=== PATIENT | female | born 1980 | race Caucasian/White ===

== ENCOUNTER → 2016-12-21 | Outpatient (CLI) | payer MEDICAID ==
[~2016-12-21] MED LIST: ALBUTEROL-200 PUFFS/ IH; BUSPAR 10MG TAB10 MG PO; FIORICET 325 MG1 TAB PO; FLEXERIL10 M1 PO; FLONASE 50 MCG16 GM; GOOD NEIGHBOR P20 M1 PO; IBUPROFEN200 MG PO; KEFLEX 500MG.500 MG PO; LEVOTHYROXIN0.112 M1 PO; LEVOTHYROXIN0.125 MG PO; LEVOTHYROXINE0.1 M1 PO; LORATADINE 10MG10 M1 PO; LORTAB 5/500 501 TAB PO; MEDROL 4MG. DOSE4 MG PO; MELOXICAM15 MG PO; MIRENA52 MG IU; MOBIC15 MG PO; MULTI VITAMINS1 TA1 PO; NORCO 325 MG-51 TAB PO; ORTHO TRI-CYCLE1 TAB PO; PREDNISONE 20MG20 MG PO; PROZAC 20MG CAP20 MG PO; SINGULAIR10 MG PO; SUMATRIPTAN SU100 MG PO; TORADOL10 M2 PO; VICODIN 5/500 T1 TAB PO; VOLTAREN75 MG PO; ZITHROMAX Z PA250 MG PO; ZYRTEC ALLERGY10 MG PO
[2016-12-21 14:07] LABS: HEMOGLOBIN 13.3 g/dL (12.2-16.2); LYMPH # 1.7 K/mm3 (0.7-4.5); LYMPH % 17.1 % (10-50.0)
[2016-12-21 14:55] LABS: AMPHETAMINES/METAMPHETAMINES NEGATIVE ng/mL (<1000)
[2016-12-21 16:00] LABS: BUN 24 mg/dL (7-18)
[2016-12-21 16:02] LABS: GFR (ESTIMATED) 57 ML/MIN (59-)
== END ==
LOC: LAB 13:48
PROVIDERS: Nurse Practitioner Psychiatric/Mental Health
DX: F39 Unspecified mood [affective] disorder (principal)

== ENCOUNTER → 2017-01-12 | Outpatient (CLI) | payer MEDICAID ==
--- NOTE | 2017-01-12 14:08 | RADIOLOGY REPORT PS360 ---
KNEE-3 VIEWS-RT HISTORY: RT MEDIAL PAIN ORDERING PHYSICIAN: CHRIS ADEN APRN PATIENT AGE: 36 years FINDINGS: There are minor osteoarthritic changes with minimal osteophyte formation along the lateral compartment and superior patella. The joint spaces are fairly well-preserved. No fracture or dislocation is evident. No lytic or blastic change. No significant change from 11/24/2014. IMPRESSION: Minor osteoarthritic change otherwise negative
== END ==
LOC: RAD 13:04
DX: M25.561 Pain in right knee (principal)

== ENCOUNTER → 2017-01-25 | Outpatient (CLI) | payer MEDICAID ==
[2017-01-26 15:27] LABS: AMPHETAMINES/METAMPHETAMINES NEGATIVE ng/mL (<1000)
== END ==
LOC: LAB 17:00
PROVIDERS: Nurse Practitioner Family
DX: E66.01 Morbid (severe) obesity due to excess calories (principal)

== ENCOUNTER → 2017-02-10 | Outpatient (CLI) | payer MEDICAID ==
--- NOTE | 2017-02-10 15:58 | RADIOLOGY REPORT PS360 ---
CT CHEST W/O CONTRAST HISTORY: Follow-up pulmonary nodules PULMONARY NODULE ORDERING PHYSICIAN: Nile Stallworth MD PATIENT AGE: 908/04/2015 TECHNIQUE: Helical acquisition obtainedwithout contrast. Axial, sagittal, and coronal reformatted images are generated and reviewed. COMPARISON: 08/04/2016 FINDINGS: There are scattered small lymph nodes in the mediastinum the largest measuring 1.8 x 1.6 cm not significantly changed. No evidence of aortic aneurysm, cardiomegaly, or pericardial effusion. 12 x 12 mm nodule is present in the right middle lobe not significantly changed. There are some small nodes in the right hilum which appear stable. There are no change 7 mm nodule right lower lobe medially. No change in the 4 and 3 mm nodules left lower lobe. No new nodules evident. No effusions or infiltrates. Upper abdominal images are unremarkable. IMPRESSION: Stable CT appearance of the chest. No change in the bilateral pulmonary nodules and small mediastinal and right hilar lymph nodes as described above. These have been stable for a 1 year.. Suggest continued yearly follow-up.
== END ==
LOC: RAD 13:00
DX: R91.8 Other nonspecific abnormal finding of lung field (principal)

== ENCOUNTER → 2017-07-13 | Outpatient (CLI) | payer MEDICAID ==
[~2017-07-13] MED LIST changes: +AMOXICILLIN 50500 MG PO
[2017-07-13 14:39] LABS: HEMOGLOBIN 12.9 g/dL (12.2-16.2); LYMPH # 1.6 K/mm3 (0.7-4.5); LYMPH % 25.7 % (10-50.0)
[2017-07-13 14:40] LABS: URINE BILIRUBIN - DIPSTICK NEGATIVE (NEG); URINE BLOOD TRACE-INTACT (NEG)
--- NOTE | 2017-07-13 14:55 | RADIOLOGY REPORT PS360 ---
CHEST(2 VIEWS-NOT PORTABLE) HISTORY: ASTHMA ORDERING PHYSICIAN: GUSTAVO SCOTT MD PATIENT AGE: 37 years COMPARISON: 09/01/2016 FINDINGS: The cardiomediastinal silhouette and pulmonary vascularity are within normal limits. No lobar consolidation or collapse is evident. There is a 15 mm nodule overlying the heart on the lateral view and is likely corresponding to the abnormality noted on the recent chest CT 02/10/2017 which was also present on previous chest CT of 08/04/2016.. No new nodules apparent. No acute bony abnormalities. IMPRESSION: 1. No acute finding. 2. No change right middle lobe nodule. As mentioned in the chest CT report recommend continued follow-up with CT to confirm long-term stability
[2017-07-13 17:25] LABS: BUN 13 mg/dL (7-18)
[2017-07-13 17:58] LABS: GFR (ESTIMATED) 95 ML/MIN (59-)
== END ==
LOC: LAB 13:51
PROVIDERS: Orthopaedic Surgery
DX: Z01.818 Encounter for other preprocedural examination (principal); S83.241A Other tear of medial meniscus, current injury, right knee, initial encounter

== ENCOUNTER 2017-07-23 19:52 | Emergency (ER) | payer MEDICAID ==
[~2017-07-23] VITALS: Ht 175.3 cm; Wt 145.2 kg
[~2017-07-23 19:52] MED LIST changes: -AMOXICILLIN 50500 MG PO
[2017-07-23] MEDS ORDERED: AMOXICILLIN 50500 MG PO (20:56)
--- NOTE | 2017-07-23 20:57 | Urgent Treatment Center Report ---
History of Present Issue Date/Time Seen by Provider 07/23/172049 Visit Reason Pt arrived:Walked Presenting Problem:PT STATES SHE'S HAD AN EAR ACHE FOR 3 DAYS Location if Accident: Onset of symptoms date/time:07/20/17 or onset unknown for: Have you (or family members/close friends) recently traveled outside the [place]? N If Yes, where/when: Have you had exposure to infectious disease within the past month? TB? Other? Specify: Patient state that she has had an ear ache for several days state that she is also having sinus pain and pressure and blowing out yellowish green mucous. State that she has continued to feel worse over the last few days and decided to come in and get checked ALLERGIES Coded Allergies: No Known Allergies (08/27/16) Home Medications Active Scripts Azithromycin (Zithromycin (Z-TANYA) 250MG Tab) 250 MG PO DAILY #6 TAB Prov: 02/19/17 Methylprednisolone (Medrol Dose Tanya) 4 MG PO UD #1 TANYA Prov: 02/19/17 Fluticasone Propionate (Flonase 50 Mcg Nasal [place]) 2 SPRAY NA DAILY #1 BOT Prov: 02/19/17 Fluticasone Propionate (Flonase 50 Mcg Nasal [place]) 2 SPRAY NA DAILY #1 BOT Prov: 05/01/17 Reported Medications Albuterol (Albuterol-Hfa Inhaler) 2 PUFF IH Q4HP PRN SOA Montelukast Sodium (Singulair) 10 MG PO DAILY Fluticasone Propionate (Flonase 50 Mcg Nasal [place]) 1 SPRAY NA DAILY Omeprazole 20 MG PO DAILY Cetirizine Hcl (Zyrtec) 10 MG PO DAILY Meloxicam (Mobic 15MG) 15 MG PO DAILY Levothyroxine Sodium (Levothyroxine 0.125MG) 0.125 MG PO DAILY History Medical History General CAD? No Angina: No [place]: No Hypertension? Yes Hyperlipidemia? No CHF? No DVT? No PE? No COPD? No Asthma? Yes Anemia? No GERD? Yes Gastric ulcers? No GI Bleed? No Hernia? No Thyroid Problems? No Hypothyroidism? Yes CVA? No Seizures? No Diabetes? No Renal Insuffiency? No UTI? No Stones? No GB Disease: No Nephritic Syndrome? No Asplenia? No Hepatitis? No Sickle Cell Disease? No Arthritis? No Migraines? No Cataracts? No Glaucoma? No MRSA? No HIV? No TB? No Anxiety? No Depression? No Cancer? No More? No Immunization HX DT/Tetanus 11/24/2010 Pneumonia Refuses Surgical Hx Previous Surgery?Y D AND C CERVIX- LEEP X 1 EAR TUBES PARTIAL THYROIDECTOMY Social History Smoking Hx Smoker: Never Smoker Tobacco: No Alcohol Alcohol: No Review of Systems All Other Systems Reviewed and Negative ENT ear pain, nose pain, nose discharge, nose congestion. Physical Exam Vital Signs Vital Signs Date Time Temp Pulse Resp B/P Pulse O2 O2 Flow FiO2 Ox Delivery Rate 07/23 2043 98.2 66 20 149/95 100 General Appearance normal appearance, WD/WN, no apparent distress Ear, Nose, Throat sinus pain/drainage, nasal congestion, right ear tube in place redness noted, left ear no redness tube in place, Tenderness noted over maxillary sinuses yellowish green drainage noted Respiratory Status Yes: trachea midline, chest symmetrical, non tender chest. No: respiratory distress. Cardiovascular normal exam, regular rate/rhythm, no peripheral edema, no gallop Neurologic alert, locomotive operator II-XII nml as tested, normal exam, no motor/sensory deficits, oriented x 3 Medical Decision Making LABS/Meds/Orders Pt receiving controlled substance in ED? No Departure Departure Time of Disposition 2051 Disposition DC Home or Self Care(routine) Clinical Impression Primary Impression: Sinusitis Qualifiers: Sinusitis location: unspecified location Chronicity: unspecified Qualified Code: J32.9 - Chronic sinusitis, unspecified Secondary Impressions: Otitis media due to H1N1 influenza virus Condition STABLE Referrals Anamaria Rojas APRN (Family) Patient Instructions DI for Otitis Media (Middle Ear Infection)-Child, DI for Sinusitis, Sinusitis Additional Instructions Start antibiotic. It may take 2-3 days to notice much improvement so be sure to use conservative measures as discussed for symptoms Ok to continue Sudafed Flonase 2 spray in each nostril daily to help with nasal congestion, sinus an ear pressure/inflammation Lots of Fluids Sleep elevated Humidifer/vaporizer Discharge Counseling Counseled pt/family regarding diagnosis, medications/RX, home care, follow up needs Prescriptions Current Visit Scripts Amoxicillin Trihydrate (Amoxicillin 500MG) 500 MG PO TID #30 CAP at 2059
[2017-07-23 21:16] VITALS: BP 149/95
== END 2017-07-23 21:16 | disposition home or self-care (01) ==
LOC: UTC 19:52
DX: J32.9 Chronic sinusitis, unspecified (principal); J10.83 Influenza due to other identified influenza virus with otitis media; Z79.899 Other long term (current) drug therapy; I10 Essential (primary) hypertension; K21.9 Gastro-esophageal reflux disease without esophagitis

== ENCOUNTER 2017-08-15 15:15 | Emergency (ER) | payer MEDICAID ==
[~2017-08-15] VITALS: Ht 175.3 cm; Wt 145.2 kg
[~2017-08-15 15:15] MED LIST changes: +AMOXICILLIN 50500 MG PO; -LEVOTHYROXIN0.125 MG PO; +LEVOTHYROXINE0.15 MG PO
--- NOTE | 2017-08-15 15:36 | Urgent Treatment Center Report ---
History of Present Issue Date/Time Seen by Provider 08/15/17 8114 Visit Reason Pt arrived:Walked Presenting Problem:PT C/O RIGHT LEG SWOLLEN Location if Accident: Onset of symptoms date/time:/ or onset unknown for:MEDICAL HX UNKNOWN Have you (or family members/close friends) recently traveled outside the [place]? N If Yes, where/when: Have you had exposure to infectious disease within the past month? TB? Other? Specify: Source patient, RN notes reviewed Exam Limitations no limitations Comment Swelling of right leg X several days. No pain or redness. Has had swelling before. Works on her feet a lot. Tried to elevate it last night but it didn't help much. No history of DVT. Scheduled for knee surgery in 8 days. ALLERGIES Coded Allergies: No Known Allergies (08/27/16) Home Medications Active Scripts Azithromycin (Zithromycin (Z-ABDULLAHI) 250MG Tab) 250 MG PO DAILY #6 TAB Prov: 02/19/17 Methylprednisolone (Medrol Dose [place]) 4 MG PO UD #1 ABDULLAHI Prov: 02/19/17 Fluticasone Propionate (Flonase 50 Mcg Nasal [place]) 2 SPRAY NA DAILY #1 BOT Prov: 02/19/17 Amoxicillin Trihydrate (Amoxicillin 500MG) 500 MG PO TID #30 CAP Prov: 07/23/17 Fluticasone Propionate (Flonase 50 Mcg Nasal [place]) 2 SPRAY NA DAILY #1 BOT Prov: 05/01/17 Reported Medications Albuterol (Albuterol-Hfa Inhaler) 2 PUFF IH Q4HP PRN SOA Montelukast Sodium (Singulair) 10 MG PO DAILY Fluticasone Propionate (Flonase 50 Mcg Nasal [place]) 1 SPRAY NA DAILY Omeprazole 20 MG PO DAILY Cetirizine Hcl (Zyrtec) 10 MG PO DAILY Meloxicam (Mobic 15MG) 15 MG PO DAILY Levothyroxine Sodium (Levothyroxine 0.125MG) 0.125 MG PO DAILY History Medical History General CAD? No Angina: No [place]: No Hypertension? Yes Hyperlipidemia? No CHF? No DVT? No PE? No COPD? No Asthma? Yes Anemia? No GERD? Yes Gastric ulcers? No GI Bleed? No Hernia? No Thyroid Problems? No Hypothyroidism? Yes CVA? No Seizures? No Diabetes? No Renal Insuffiency? No UTI? No Stones? No GB Disease: No Nephritic Syndrome? No Asplenia? No Hepatitis? No Sickle Cell Disease? No Arthritis? No Migraines? No Cataracts? No Glaucoma? No MRSA? No HIV? No TB? No Anxiety? No Depression? No Cancer? No More? No Immunization HX DT/Tetanus 11/24/2010 Pneumonia Refuses Surgical Hx Previous Surgery?Y D AND C CERVIX- LEEP X 1 EAR TUBES PARTIAL THYROIDECTOMY Social History Smoking Hx Smoker: Never Smoker Tobacco: No Alcohol Alcohol: No Review of Systems All Other Systems Reviewed and Negative Musculoskeletal see HPI Physical Exam Vital Signs Vital Signs Date Time Temp Pulse Resp B/P Pulse O2 O2 Flow FiO2 Ox Delivery Rate 08/15 1528 98.4 88 20 143/100 96 General Appearance normal appearance, no apparent distress Respiratory Status No: respiratory distress, trachea midline, chest symmetrical. Lung Sounds bilateral: normal breath sounds, lungs clear. Cardiovascular normal exam, regular rate/rhythm, no peripheral edema, no gallop, no JVD, no murmur, no rub Peripheral Pulses Pulses normal Yes Extremities non-tender, normal range of motion, normal inspection, normal capillary refill, pedal edema, Negative Essie's; no calf tenderness Neurologic alert, normal exam, oriented x 3 Mental status normal mood/affect Medical Decision Making LABS/Meds/Orders Pt receiving controlled substance in ED? No Departure Departure Time of Disposition 1542 Disposition DC Home or Self Care(routine) Clinical Impression Primary Impression: Edema, lower extremity Condition STABLE Referrals Anamaria Rojas APRN (Family) Patient Instructions DI for Peripheral Edema, Unilateral Additional Instructions ARGELIA WADE Discharge Counseling Counseled pt/family regarding diagnosis, medications/RX, home care, follow up needs Prescriptions Current Visit Scripts Furosemide (Lasix 20MG) 20 MG PO DAILY #7 TAB at 1547
[2017-08-15] MEDS ORDERED: LASIX 20MG. TAB20 MG PO (15:43)
[2017-08-15 15:48] VITALS: BP 143/100
== END 2017-08-15 15:51 | disposition home or self-care (01) ==
LOC: UTC 15:15
DX: R60.9 Edema, unspecified (principal); I10 Essential (primary) hypertension; J45.909 Unspecified asthma, uncomplicated; K21.9 Gastro-esophageal reflux disease without esophagitis; E03.9 Hypothyroidism, unspecified; Z79.51 Long term (current) use of inhaled steroids; Z79.899 Other long term (current) drug therapy

== ENCOUNTER 2017-08-23 08:17 | Observation (INO) | payer MEDICAID ==
[~2017-08-23] VITALS: Ht 175.3 cm; Wt 143.1 kg
[2017-08-23] VITALS (11 sets, daily range): BP systolic 115–144; BP diastolic 58–80
[~2017-08-23 08:17] MED LIST changes: +LASIX 20MG. TAB20 MG PO
--- NOTE | 2017-08-23 14:32 | Anesthesia Record ---
Anesthesia Record Part I Total IV fluids: 2500 EBL (ml): 10 Urine Output: 600 B/P: 130/95 % SaO2: 93 Pulse: 99 Resps: 12 Temp: 98.4 Patient is: Awake, Stable Stable to PACU at: 1430 at 1431
--- NOTE | 2017-08-23 14:32 | Anesthesia Record ---
Anesthesia Record Part II Discharge time: 1500 Destination: Same day surgery PACU nurse assessment review? Yes Patient is: Awake, Stable Anesthesia complications? No at 1432
--- NOTE | 2017-08-23 16:21 | Operative Note ---
Procedure/Operative Record Date of Procedure: 08/23/17 Referring physician: Dr. Guzman Pre-op diagnosis: 1. Anterior cruciate ligament tear, RIGHT knee 2. Complex medial meniscal tear, RIGHT knee 3.Osteoarthritis, RIGHT knee 4. Morbid obesity Post-op diagnosis: 1. Anterior cruciate ligament tear, RIGHT knee 2. Complex medial meniscal tear, RIGHT knee 3.Osteoarthritis, RIGHT knee 4. Morbid obesity Procedure performed: 1. Examination under anesthesia, RIGHT knee 2. Anterior cruciate ligament reconstruction, RIGHT knee 3. Partial medial meniscectomy, RIGHT knee 4. Chondroplasty, RIGHT knee Surgeon: Juanjo Scott MD Welder Apprentice Combination(s): Dr. Neo Francis Anesthesia: General Indications: Patient is a 37 year-old female who sustained an injury to her RIGHT knee while getting up from a seated position in a chair over 6 months ago. Evaluation including MRI scan showed a complete anterior cruciate ligament tear, complex medial meniscal tear and degenerative changes. She had a spell of physical therapy but the knee continued to be unstable with frequent episodes of giving out. Clinically her knee joint was unstable. Following a detailed discussion about the management options in the office, she opted for anterior cruciate ligament reconstruction with an allograft and a partial medial meniscectomy/ meniscal repair as appropriate at the time of the procedure. I told her that there were no guarantees with surgery; she could be no better or even worse. The complications discussed include but are not limited to infection, injury to nerves, blood vessels and tendons/ligaments, bleeding, DVT/PE , continued instability, loss of stability/graft failure, anterior knee pain/kneeling pain, stiffness, arthrofibrosis, knee effusion both aseptic and septic, fracture through tunnels, persistent pain, recurrent joint swelling, graft discontinuity, inappropriate tunnel positioning, injury to the articular cartilage, menisci and posterior cruciate ligament, graft impingement, tunnel blowout, painful hardware , arthritis, Cyclops lesion, Complex Regional Pain Syndrome (CRPS), hemarthrosis , continued symptoms/incomplete recovery, likely need for further surgery, reaction to anesthetic with damage to the heart, lungs, brain, and even . With regards to the graft options- she again elected for an allograft and I am planning to use soft tissue graft with the suspensory fixation for an all inside anterior cruciate ligament reconstruction. We discussed possible risk of disease transmission even though very rare, slightly higher risk of graft failure/ rupture. We had to reschedule her couple of times previously because of issues with obtaining the allograft. Therefore we also discussed about autograft options including bone patellar tendon bone graft and the required surgery and complications for this. This however is not her primary option. Her primary option still is an allograft. We also discussed the postoperative recovery and rehabilitation protocol. She understands postoperative physical therapy is one of the mainstays of the management and involves various stages for at least 6 months. I told her that it could take up to 6-9 months for full recovery of her knee and to return to any sports again. All her questions were answered by me and the patient expressed full understanding and wished to proceed with surgery. Findings: Examination under anesthesia showed a small knee joint effusion. Her knee range of motion was from 0-110 of flexion. Knee joint was stable to varus and valgus stress at 0 and 30 degrees of flexion. Anterior drawer 2+, Renato was difficult to evaluate given the size of her leg and she had a positive pivot shift test, grade 2. Arthroscopic findings included near complete anterior cruciate ligament rupture at the femoral attachment with only a few fibers of the anteromedial bundle intact. The medial meniscus showed a complex tear with the major component of the tear appearing like a detached bucket-handle tear involving the body and posterior horn. The torn meniscus was very chewed up and not suitable for meniscal repair. There were degenerative changes in all 3 compartments with more severe changes over the patellofemoral joint. Description of procedure: The patient was brought to the operating room and placed supine on the operating table. All the bony prominences were appropriately padded. A general anesthesia was administered by the anesthetic team. Examination under anesthesia showed a small knee joint effusion. Her knee range of motion was from 0-110 of flexion. Knee joint was stable to varus and valgus stress at 0 and 30 degrees of flexion. Anterior drawer 2+, Renato was difficult to evaluate given the size of her leg and she had a positive pivot shift test, grade 2. A well-padded tourniquet cuff was placed over the RIGHT upper thigh. The RIGHT lower extremity was prepped and draped in the usual sterile fashion. The leg was draped free to facilitate full flexion and extension of the knee with a lateral post attached to the table. Administration of IV prophylactic antibiotics was confirmed with anesthetic team. A preprocedure timeout was performed as per hospital protocol. The limb was exsanguinated with Esmarch bandage and tourniquet cuff was inflated to 350 mmHg. Please see the nursing notes for the tourniquet time. A standard anterolateral portal was established blindly and the arthroscopic sheath and arthroscope were introduced. After filling the knee joint with the irrigation fluid, an anteromedial portal was established under direct vision using a spinal needle. A diagnostic knee arthroscopy was performed. This showed a lax ACL with near complete tear at the femoral attachment with only a few fibers of the anteromedial bundle intact. On probing the anterior cruciate ligament, it was noted that there is some scarring and more than 90 percent rupture of the anterior cruciate ligament at the femoral attachment with only a few anteromedial fibers intact. The intercondylar notch was noted to be somewhat narrow. The medial meniscus showed a complex tear with the major component of the tear appearing like a detached bucket-handle tear involving the body and posterior horn. The torn meniscus was very chewed up and not suitable for meniscal repair. Given this fact we have decided against performing lateral meniscectomy. There were degenerative changes in all 3 compartments with more severe changes over the patellofemoral joint. The posterior cruciate ligament was intact. The lateral meniscus was intact. After completing this diagnostic arthroscopy, we have decided to proceed with partial medial meniscectomy and anterior cruciate ligament reconstruction with the graft link cadaveric allograft. We first performed a partial medial meniscectomy using arthroscopic biters and shaver. The chewed up, unstable segments were removed leaving a stable meniscal rim behind. Satisfactory partial meniscectomy was confirmed by probing the left over meniscus. We then turned our attention to the intercondylar notch where the remnant of torn anterior cruciate ligament was debrided using the 4 mm aggressive plus arthroscopic shaver. A limited notchplasty was performed using arthroscopic curette and nicolas. At this time, the pre-sutured [employer] GaftLink soft tissue allograft was prepped on the back table ready for use. The graft was measured, sized and marked appropriately. The femoral end measured 9.5 mm in thickness and the tibial end measured 9 mm thick. We then used the femoral guide to create the femoral tunnel for the all inside anterior cruciate ligament reconstruction using the appropriate size flip cutter. After positioning the femoral guide appropriately a small skin incision was made over the lateral aspect of the knee and the flip cutter was introduced. Then the guide was removed and the flip cutter blade was opened and the femoral tunnel created to 30 mm depth. Using the fiber stick a loop of FiberWire was passed and retrieved through the lateral portal for passing the femoral end of the graft. Attention was then turned to the creation of the tibial tunnel again using the appropriate sized flip cutter for the all inside anterior cruciate ligament reconstruction. Using the appropriate tibial guide through the medial portal, the tip of the guide was positioned over the anterior cruciate ligament footprint. The skin incision was made over the anteromedial aspect of the proximal tibia, and the flip cutter was introduced. After the making sure the position is satisfactory, the guide was removed and the flip cutter blade was activated. The tibial tunnel was created with the flip cutter to 35 mm depth. Again using the fiber stick a loop of FiberWire was passed and retrieved through the medial portal for passing the tibial end of the graft. We then introduced a passport cannula through the medial portal for passing the graft into the knee joint. Then using the femoral and tibial fiber loops, the graft was first passed into the femoral tunnel and then into the tibial tunnel. After positioning the graft appropriately in the femoral and tibial tunnels, we then deployed the femoral tightrope button. We then placed the tibial tightrope ABS button and advanced on to the tibial cortex. At this stage, we felt that the femoral button was hanging on the soft tissue as opposed to sitting flush on the bone. We confirmed this under C-arm fluoroscopic guidance and noted that it was not sitting flush on the bone. Therefore, we extended the skin incision over the lateral femoral condyle and dissected bluntly down to the fascia hector. We noted that the button was hanging on the fascia hector which we carefully incised and then advance the button onto the bone. After tightening the tightrope button appropriately, the knee joint was cycled through repeatedly. Then both tightrope buttons were fully tightened at 15-20 degrees of knee flexion and mild posterior pressure on the tibia. Appropriate positioning of the tightrope buttons was confirmed under C-arm and the femoral pull-through suture was removed. The femoral tightrope suture was cut under the skin. On the tibial side the tightrope suture was cut and the whipstitch suture was tied over the button. The graft was again examined arthroscopically. It was probed and felt to be stable. The Lachmans test was felt to be obliterated and the anterolateral stability was restored on pivot shift test. There was no evidence of graft impingement through range of motion. The knee was copiously irrigated and completely emptied. The portals/skin incisions were closed with 4-0 Ethilon sutures. Hemostasis was obtained with diathermy and the incision over the lateral femoral condyle was closed with 2-0 Vicryl and 4-0 Ethilon sutures to the skin. A total of 60 cc of 0.5% Marcaine was injected around the portals/incision and into the knee joint for postoperative pain relief. Sterile dressings and pressure bandages were applied. Tourniquet cuff was removed at the completion of the procedure. Patient was then reversed from the anesthetic and transferred onto a gurney. She was then safely transported to the postoperative recovery area in stable condition. A T scope brace was applied in the recovery area and locked in full extension. Patient tolerated the procedure well and there were no immediate complications. The swab, needle and instrument counts were correct according to the scrub team at the end of the procedure. Patient had significant postoperative pain which could not be controlled on an outpatient basis. Therefore she was admitted for observation and pain control. Follow up in my office in 2-3 days' time for reducing the dressings and start of physical therapy. EBL (ml): 20 Implant: 9 mm/74 mm GraftLink pre-sutured soft tissue allograft ([employer]) [employer] allograft GraftLink convenience pack with femoral and tibial tightrope/ buttons (Industry representatives: Neil Hernadez from [employer]) Complications: None Specimens: None at 1213
[2017-08-23 17:12] LABS: URINE BILIRUBIN - DIPSTICK NEGATIVE (NEG); URINE BLOOD NEGATIVE (NEG)
[2017-08-23 18:06] LABS: URINE SQUAMOUS CELLS OCC #/hpf (0-5)
[2017-08-24] VITALS (7 sets, daily range): BP systolic 104–128; BP diastolic 49–77
--- NOTE | 2017-08-24 05:07 | RADIOLOGY REPORT PS360 ---
KNEE-LIMITED 2 VIEWS-RT HISTORY: ACL REPAIR OF RT KNEE ORDERING PHYSICIAN: GUSTAVO SCOTT MD PATIENT AGE: 37 years COMPARISON: None FINDINGS: 2 images are submitted with C-arm during the ACL repair. IMPRESSION: Fluoroscopy utilized for ACL repair
--- NOTE | 2017-08-24 07:26 | PHARMACY CLINIC NOTE ---
Patient Demographics Patient Demographics Admission date: 08/23/17 Date: 08/24/17 Time: 07 Allergies Coded Allergies: No Known Allergies (08/23/17) HEIGHT- FT: 5 IN: 9.00 K.082 VTE General Information Disclaimer The following section includes nursing documentation that has been pulled in for pharmacy review. Patient's VTE score: 5 Patient's VTE Risk: LOW RISK VTE prophylaxis NQF [id number] VTE prophylaxis ordered? Yes Type of prophylaxis/treatment: ICD at 0725
--- NOTE | 2017-08-24 11:44 | ACUTE CARE PROGRESS NOTE ---
Progress note Date: 08/24/17 Assessment: Subjective: Patient is a 37-year-old female status post arthroscopic ACL reconstruction, partial medial meniscectomy and chondroplasty, post op day # 1. She was admitted to hospital yesterday after surgery mainly for pain management. She is lying down on the bed and appears comfortable. She says he is doing well and says her pain is well controlled with medication. She also mentioned that she got out of bed earlier today and walked with the splint without much discomfort. She is eating and drinking well. No history of any fevers, nausea, vomiting, tingling or numbness in the leg. She is keen to go home today. Objective: I reviewed the labs, vital signs, medication, and discussed with the nursing staff. Exam: General appearance: alert, oriented 3 awake, no acute distress. ENT: mucous membranes dry Neck: normal inspection Cardiovascular: normal sinus rhythm, regular rate & rhythm Respiratory: clear to auscultation, normal breath sounds ABD: non-distended, normal bowel sounds, soft, no tenderness, no guarding and no organomegaly Skin: dry, intact On examination of her right lower extremity, she has a well fitting t scope knee brace in place. The dressings over the right knee are clean, dry and intact. Her thigh and calf are soft and nontender. Distal dorsalis pedis and posterior tibial pulses are 2+. Capillary refill is brisk. Distal sensation is intact to light touch throughout. She is actively moving her ankle, foot and toes on both sides. Vital Signs Result Date Time Pulse Ox 98 08/24 1119 B/P 115/56 08/24 1119 O2 Delivery ROOM AIR 08/24 1119 Temp 98.2 08/24 1119 Pulse 69 08/24 1119 Resp 20 08/24 1119 Impression: 1. S/P ACL reconstruction 2. S/P arthroscopic partial medial meniscectomy Plan: I reviewed her vital signs, lab results, medication and also discussed with the nursing staff regarding her progress. I reviewed the operative findings and the procedure performed with the patient and her . As her pain is well controlled and she is doing well, we will discharge her from hospital today. She can mobilize weightbearing as tolerated with the splint. Advised her to continue elevation, icing, pain medication as needed and active foot and ankle movements. Follow-up in my office in 2 days time for change of dressings followed by physical therapy appointment. All their questions were answered by me and they verbalized a good understanding. Antibiotic Stewardship (2) Current Culture Results Microbiology 08/23 0946 URINE,FO: Urine Culture - RES
[2017-08-24] MEDS ORDERED: SENNA PLUS 50 M1 TAB PO (11:49)
--- NOTE | 2017-08-27 15:15 | DISCHARGE SUMMARY STANDARD ---
Demographics Admit date: 08/23/17 Discharge date: 08/24/17 History of present illness History of present illness Patient is a 37-year-old female who sustained an injury to her right knee about 6 months ago. Evaluation including an MRI scan of her knee showed a complex medial meniscal tear, complete ACL rupture as well as degenerative changes. She failed to respond satisfactorily to conservative management and continued to have knee pain and recurrent giving out. Following evaluation in the office, she was brought in for elective right knee arthroscopic surgery. She underwent an uneventful right knee arthroscopic ACL reconstruction with cadaveric soft tissue allograft, partial medial meniscectomy and chondroplasty on 08/24/2017. She was admitted following surgery for observation and pain management. She works in the [employer] department [employer] [facility] [employer]. Hospital Course Hospital Course: She underwent an uneventful right knee arthroscopic ACL reconstruction with cadaveric soft tissue allograft, partial medial meniscectomy and chondroplasty on 08/24/2017. She was admitted following surgery for observation and pain management. On the first postoperative day, she was comfortable and her pain was well controlled with medication. She mobilized with the knee brace without any problems. She is eating and drinking well. No history of any fevers, nausea , vomiting, tingling or numbness in the leg. She is keen to go home today. She remained hemodynamically stable throughout the period of hospital admission. She was discharged home on the first postoperative day with appropriate instructions. Her pain was well controlled with medication. She was advised to use the splint locked at 0, when she is up and about until she regains full quadriceps control. Follow-up in my office in couple of days time for change of dressings followed by start a formal physical therapy. Advised to keep the dressings and the incision clean and dry. Discharge diagnoses Problem List 1. S/P ACL reconstruction 2. S/P arthroscopic partial medial meniscectomy Medications Medications: Discharge meds are as noted. Follow up Follow up in office in: 2 DAYS with: SONIA MATHEWS, GUSTAVO LUIS
== END 2017-08-24 12:55 | disposition home or self-care (01) ==
LOC: SDC 08:17 → 2ND 17:11
PROVIDERS: Orthopaedic Surgery
PROC: 0MUN4JZ Supplement Right Knee Bursa and Ligament with Synthetic Substitute, Percutaneous Endoscopic Approach (ICD-10-PCS; principal; 2017-08-23 09:30)
PROC: 0SBC4ZZ Excision of Right Knee Joint, Percutaneous Endoscopic Approach (ICD-10-PCS; principal; 2017-08-23 09:30)
PROC: 0YU Anatomical Regions, Lower Extremities, Supplement (ICD-10-PCS; principal; 2017-08-23 09:30)
DX: S83.211A Bucket-handle tear of medial meniscus, current injury, right knee, initial encounter (principal); S83.231A Complex tear of medial meniscus, current injury, right knee, initial encounter; S83.511A Sprain of anterior cruciate ligament of right knee, initial encounter
CPT/HCPCS: C1713; G0238; G0378; J0131; J2405

== ENCOUNTER → 2017-09-17 | Outpatient (CLI) | payer MEDICAID ==
[~2017-09-17] MED LIST changes: +SENNA PLUS 50 M1 TAB PO
--- NOTE | 2017-09-24 16:32 | RADIOLOGY REPORT PS360 ---
DIG MAMM-DX [facility] W/CAD LEFT BREAST ULTRASOUND WITH AXILLA COMPARISON: None INDICATION: Palpable nodule left breast ORDERING PHYSICIAN: Nile Stallworth MD PATIENT AGE: 37 years TECHNIQUE: Routine images performed along with spot compression views and left breast ultrasound FINDINGS: There is average fibroglandular tissue. Right breast: Asymmetric density is present in the deep right breast which does appear to compress out as fibroglandular tissue. No discrete mass or malignant appearing microcalcification. Left breast: Palpable abnormality as reported in the 1-2 o'clock region. A marker is placed in this area. No distinct mammographic abnormality in this area. No malignant appearing mass or malignant appearing microcalcification. Left breast ultrasound: No sonographic abnormality detected. Specifically, no cystic or solid lesions evident. IMPRESSION: No evidence of malignancy BI-RADS CATEGORY: 2_Benign RECOMMENDED FOLLOWUP: As clinically warranted. Negative mammogram and negative ultrasound does not exclude the possibility of malignancy. Any palpable lesion should be managed on clinical basis. (A letter has been sent to the patient regarding results of the study.)
== END ==
LOC: RAD 12:55
DX: N63.20 Unspecified lump in the left breast, unspecified quadrant (principal)
CPT/HCPCS: G0204

== ENCOUNTER → 2017-10-11 | Outpatient (CLI) | payer MEDICAID ==
[2017-10-13 03:41] LABS: CCP Antibodies IgG/IgA 4 units (0-19)
== END ==
LOC: LAB 12:01
PROVIDERS: Nurse Practitioner Family
DX: I73.00 Raynaud's syndrome without gangrene (principal)